=== PATIENT | male | born 1990 | race Caucasian/White ===

== ENCOUNTER 2024-07-14 11:30 | Observation (INO) | payer OTHER, SELFPAY ==
[2024-07-14] VITALS (12 sets, daily range): BP systolic 105–133; BP diastolic 66–81; BMI 23.6; BMI 22.8
--- NOTE | 2024-07-14 09:33 | ED.GENMED ---
History of Present Illness
General
Chief Complaint: Chest Pain
Source: patient
Exam Limitations: none
Time Seen by Provider: 07/14/24 09:19
Nursing documentation reviewed up to this point in time: agreed with
History of Present Illness
History of Present Illness:
Patient without any significant past medical history, presents to ED secondary to 3-day history of persistent chest pain. Chest pain described as pressure, middle of his chest, nonradiating, worse with inspiration, without any alleviating factors.
Denies diaphoresis. Denies vomiting but with nausea sensation. Denies dizziness. Denies leg pain or swelling. Denies back pain. Denies recent travel or surgery. Patient vapes. Denies drinking alcohol. Family history is unknown, as patient
was adopted.
Review of Systems
Review of Systems
Allergies reviewed?: Yes
All Other Systems: ROS reviewed and negative except as documented in HPI and ROS
Constitutional: Reports no symptoms; Denies fever
EENT: Reports no symptoms
Respiratory: Reports cough and trouble breathing
Cardiac: Reports no symptoms
ABD/GI: Reports nausea; Denies vomiting
Musculoskeletal: Reports no symptoms
Skin: Reports no symptoms
Neurological: Reports no symptoms
Phy Exam
Physical Exam
Physical Exam:
Physical Exam
General: mild painful distress, not acutely ill. afebrile
Head: nc/at. eomi
Neck: supple. normal range of motion.
Heart: s1/s2 regular rate and rhythm
Lungs: no acute respiratory distress. clear bilaterally. chest wall nontender to palpation
Abdomen: normal bowel sounds. not tender.
Neuro: alert and oriented x 3. no focal neurological deficits
Skin: no rash
Psychiatric: well kept. interactive and cooperative
Extremities: no edema. no calf tenderness.
Scores
Heart Score for Chest Pain Patients
STEMI patient?: No
History: Slightly or Non-Suspicious
ECG: Normal
Age: </= 45 years
Risk Factors: No Risk Factors
Troponin: </= Normal Limit
Heart Score for Chest Pain Patients: 0
Heart Score Risk: 2.5% MACE over next 6 weeks
Course
Orders/Labs/Results
Orders:
Orders
07/14/24 Breakfast
Regular
At Your Request: Limited, [employer] Required
07/14/24 09:15
EKG [Electrocardiogram (*1)] Urgent
Reason for Study: Chest Pain
EKG- Treatment ONCE
07/14/24 09:22
Electrocardiogram (*1) Urgent
Reason for Study: Chest Pain
Cardiac Monitoring- Treatment ONCE
EKG- Treatment ONCE
IV Insert/Care/Rem.- Treatment PRN
O2 Therapy [RESP] Urgent
Titrate/Wean O2 to maintain O2 sat greater than (%): 90
Special Instructions: Maintain sats >/=90%
Pulse Ox/spot Check [RESP] Urgent
Quantity: 1
Special Instructions: ON ROOM AIR
07/14/24 09:24
Complete Blood Count/With Diff Urgent
Comprehensive Metabolic Panel Urgent
PTT Urgent
Prothrombin Time Urgent
Troponin I Urgent
CR Chest Portable - 1 View Urgent
Comment:
Reason For Exam: cp/sob
Reason Study Needs to be Portable: Patient Unstable
07/14/24 09:36
Colchicine 0.6 mg PO NOW STA
Ketorolac [Toradol] 15 mg IV NOW STA
07/14/24 10:14
Echo 2D MMode Color/Doppler Urgent
Reason for Study: Chest pain, EKG changes
Comment: Likely pericarditis.
07/14/24 10:15
COVID-19 Antigen Urgent
Source: Nasal Swab
07/14/24 11:14
Admit/Transfer Patient As Directed
Co-Sign Provider:
Level of Care: Observation services
Assign to:: Telemetry
Physician / Group: Hospitalist: Parish
Diagnosis: Pericarditis
Reason for Telemetry: Other
Other Reason for Telemetry: Pericarditis
Date to Stop Telemetry: 07/16/24
Time to Stop Telemetry: 11:00
07/14/24 11:15
PRN Pain Medication Management As Directed
May give lesser potent ordered pain med per pt: Yes
preference::
Protocol:: Medication orders for pain may be administered in a
manner that supports deferring to patient preference
when the pt is:
- Requesting an ordered lesser potent pain medication.
Least to most potent pain medications are defined
as: acetaminophen < NSAID < tramadol < opioids
(morphine, oxycodone, hydromorphone).
- Requesting a lesser dose of the same medication IF
ORDERED.
- Requesting a less intrusive route of administration
if both routes are prescribed by the provider (PO <
IV).
07/14/24 11:25
Code Status As Directed
Resuscitation Status: Full Code
Bisacodyl [Dulcolax] 10 mg RECTAL [id number] PRN
Docusate W/Senna [Senokot-S] 1 tablet PO BIDPRN PRN
Polyethylene Glycol Powder [Miralax] 17 grams PO DAILYPRN PRN
07/14/24 11:26
Activity As Directed
Activity Level: As Tolerated
Vital Signs As Directed
Frequency: Per unit guidelines
07/14/24 11:27
CARDIOLOGY CONSULT Routine
Consulting Provider: Ralph Peña
Was physician already notified: Yes
Reason for consult: acute pericarditis
07/14/24 12:24
DX Deep Vein Thrombosis Video Routine
07/14/24 16:00
Indomethacin [Indocin] 25 mg PO TID
07/14/24 18:00
Enoxaparin Sodium [Lovenox] 40 mg SC QPM
07/14/24 20:00
Colchicine 0.6 mg PO BID
07/16/24 11:00
DC Protocol for Telemetry ONCE
Abnormal Lab Results
07/14/24
09:24
WBC 25.4 H 10^3/uL
(4.8-10.8)
RBC 4.38 L 10^6/uL
(4.70-6.10)
Hct 37.6 L %
(39.0-52.0)
Abs Immat Gran (auto) 0.1 H 10^3/uL
(0-0.05)
Absolute Neuts (auto) 22.6 H 10^3/uL
(1.4-6.5)
Absolute Lymphs (auto) 1.1 L 10^3/uL
(1.2-3.4)
Absolute Monos (auto) 1.6 H 10^3/uL
(0.1-0.6)
Neutrophils % 88.7 H %
(42.2-75.2)
Lymphocytes % 4.3 L %
(20.5-51.1)
PT 14.7 H Sec
(11.4-14.6)
Glucose 134 H mg/dl
(70-99)
ALT 61 H U/L
(0-50)
07/14/24 09:24
07/14/24 09:24
Vital Signs
Initial and Last Documented VS:
Initial Vital Signs
Pulse Resp BP Pulse Ox
103 17 133/81 100
07/14/24 09:21 07/14/24 09:21 07/14/24 09:21 07/14/24 09:21
Last Documented Vital Signs
Temp Pulse Resp BP Pulse Ox
99.4 F 100 18 119/66 99
07/14/24 12:32 07/14/24 12:32 07/14/24 12:32 07/14/24 12:32 07/14/24 12:32
MDM/Problems Addressed
MDM/Problems Addressed:
Patient evaluated immediately upon arrival. Initial EKG reveals diffuse ST elevation without any acute reciprocal changes, consistent with likely pericarditis, less likely ACS. Patient also evaluated shortly upon arrival by Dr. Peña,
turkey roll maker, who performed bedside ultrasound, and does not feel that patient's symptoms are consistent with ACS. However, in light of patient's significant symptoms, does recommend treating patient acutely with Toradol and
colchicine, with admission to hospitalist service tonight.
*EKG
Interpreted by ED Provider?: Yes
EKG Intrepretation Date: 07/14/24
Heart Rate: 101
Rate: tachycardiac
Rhythm: sinus
Crescent: normal axis
Ischemia: non-specific ST changes
*Critical Care Note
Total Time (30-74mins, 75-104mins- exclusive of procedures): Not Applicable
ED Attending Note
-
Portions of this chart may have been created with voice recognition software.� Occasional wrong word or��sound alike� substitutions may have occurred due to the inherent limitations of voice recognition software.
Discharge Plan
Departure
Patient Disposition: Admit
Date of Disposition: 07/14/24
Time of Disposition: 10:42
Admit to: Telemetry
Presentation/result/management discussed w/ accepting MD/DO: Hospitalist
Discharge Problem:
Pericarditis
Interventions
Interventions:
*Risk Screen - Suicide Last Done: 07/14/24 15:03
*General Assessment Last Done: 07/14/24 09:31
*Neglect/Abuse Screening Last Done: 07/14/24 09:27
*ED- Fall Risk Assessment Last Done: 07/14/24 09:27
*ED COVID-19 Vaccine History Last Done: 07/14/24 09:30
*Nursing Disposition Last Done: 07/14/24 12:05
ED- Cardiac Assessment Last Done: 07/14/24 09:34
Discharge Date and Time
Discharge Date/Time: 07/14/24 12:05
[2024-07-14 09:39] LABS: Hematocrit 37.6 % (39.0-52.0); Hemoglobin 13.1 g/dL (13.0-18.0); Mean Corp Hgb Conc. 34.8 g/dL (33.0-37.0); Mean Corpuscular Hgb 29.9 pg (27.0-31.0); Mean Corpuscular Volume 85.8 fL (80.0-94.0); Mean Platelet Volume 9.1 fL (7.4-10.4); Platelet Count 316 10^3/uL (130-400); Red Blood Cell Count 4.38 10^6/uL (4.70-6.10); Red Cell Dist. Width 12.5 % (11.5-14.5); White Blood Cell Count 25.4 10^3/uL (4.8-10.8)
[2024-07-14] MEDS: TORADOL 15 MG IV (09:41)
[2024-07-14] MEDS: COLCHICINE 0.6 MG PO ×2 (09:41→21:12)
[2024-07-14 09:43] LABS: APTT 34.2 Sec (23.4-35.0); INR 1.11; PT 14.7 Sec (11.4-14.6)
[2024-07-14 09:45] LABS: ALT (SGPT) 61 U/L (0-50); AST (SGOT) 46 U/L (17-59); Albumin 4.1 g/dl (3.5-5.0); Alkaline Phosphatase 43 U/L (38-126); Blood Urea Nitrogen 12 mg/dl (9-20); Calcium 9.3 mg/dl (8.4-10.2); Carbon Dioxide 23 mmol/L (22-30); Chloride 107 mmol/L (98-107); Estimated Creatinine Clearance 110 ml/min; Glucose 134 mg/dl (70-99); Sodium 140 mmol/L (135-145); Total Protein 7.4 g/dl (6.3-8.2); eGFR > 60.00
[2024-07-14 09:56] LABS: Troponin I 0.019 ng/ml
[2024-07-14 10:40] LABS: COVID-19 Antigen Negative (Negative)
--- NOTE | 2024-07-14 10:54 | CON.CAR ---
Consultation
Consultation Request
Date/Time Consultation Requested: 07/14/2024, 09:23
Date/Time Consultation Performed: 07/14/2024, 09:30
Requesting Provider: Delta Gomez M.D.
Performing Provider: Ralph Peña D.O.
Reason for Consultation: Chest pain, abnormal EKG.
Medical History
-
Chief Complaint: Chest pain.
History of Present Illness:
34 y/o male without significant past medical history presents with chest pain. The pain is severe, pleuritic and worsens with recumbent position. He denies any prior episodes. Pain has been present for the past three days, though accelerated to
the point of seeking medical attention this morning. On further questioning, he admits to self treating a sore throat at home. He has taken OTC cough medicine but is otherwise healthy. He does not take any medications on a regular basis. He did
have a prior episode of hematuria (treated at the [facility]) without obvious source. He reports that physicians at [facility] did not find any abnormalities (perhaps he had a UTI and was treated with ABX?). 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
exposures. In the ER, EKG showed diffuse ST elevations, initially prompting warehouse laborer activation. Bedside echo using the ER US machine (with cardiac probe) revealed normal LV function without wall motion abnormality. senior cytogenetics laboratory director was cancelled for
likely diagnosis of acute pericarditis. He is adopted (ethnically Stateless, no [place] ancestry by report) and is unaware of any biological family history.
Past Medical History
Past Medical History: None
Past Surgical History: None
Social History
Tobacco: Vaping
Alcohol: Occasional
Drug: None
Personal: Single
Living: With Family
Employment: Employed
Family History
Family History: Adopted
Allergies / Home Medications
Allergy/AdvReac Type Severity Reaction Status Date / Time
No Known Allergies Allergy Unverified 07/14/24 09:27
�Medication �Instructions �Recorded �Confirmed �Type
No Meds [No Current Medications] 07/14/24 07/14/24 History
Review of Systems
-
History Source: Patient and Family
Constitutional: Chills
EENT: Tearing and Sore Throat
Respiratory: Cough
Cardiac: Chest Pain and Diaphoresis
Abdomen/GI: No Symptoms
: No Symptoms
Musculoskeletal: No Symptoms
Skin: No Symptoms
Neurological: No Symptoms
Physical Exam
Vital Signs
Pulse Resp BP Pulse Ox
97 11 105/66 98
07/14/24 10:30 07/14/24 10:15 07/14/24 10:30 07/14/24 10:30
Lab Results
07/14/24 09:24
07/14/24 09:24
Troponin I 0.019 ng/ml 07/14/24 09:24
Physical Exam
General: Well Developed, Well Nourished, Pain and Chills
HEENT: Normocephalic, Anicteric and Moist Mucous Membranes
Respiratory: Clear
Cardiac: S1/S2, Regular Rhythm and Rub
Breast: Deferred by me
GI: Soft, Non Tender, Non Distended and Normal Bowel Sounds
Rectal: Deferred by Provider
Musculoskeletal: No Clubbing, No Cyanosis and No Edema
Skin: Warm and Dry
Neuro: AO x 3
Psych: Calm
Impression / Plan
-
Impression/Plan: 34 y/o male with recent URI/sore throat presenting with three days of accelerating, pleuritic chest pain, worsened with recumbent position and diffuse ST elevation on EKG, consistent with pericarditis.
#Pericarditis
-Acute.
-Likley post viral given recent URI/sore throat symptoms. COVID negative.
-No current role for invasive angiography.
-Check formal echocardiogram.
-Check/trend troponin to r/o myocarditis component.
-Start pain relief/anti-inflammatories (indomethacin + colchicine).
#Dispo
-Admit for observation to internal medicine with cardiology consult.
Data Reviewed
-
EKG: Tracing Personally Visualized and interpreted and Report Reviewed by me
Radiology: Image Personally Visualized and interpreted and Report Reviewed by me
Ultrasound: Image Personally Visualized and interpreted
Labs: Labs Reviewed by me, Discussed with Physician, Discussed with Patient and Discussed with Family
[2024-07-14 11:24] LABS: % Basophils 0.3 % (0-2); % Immature Granulocytes 0.5 % (0-0.5); % Lymphocytes 4.3 % (20.5-51.1); % Monocytes 6.2 % (1.7-9.3); % Neutrophils 88.7 % (42.2-75.2); Absolute Basophils 0.1 10^3/uL (0-0.2); Absolute Immature Granulocytes 0.1 10^3/uL (0-0.05); Absolute Lymphocytes 1.1 10^3/uL (1.2-3.4); Absolute Monocytes 1.6 10^3/uL (0.1-0.6); Absolute Neutrophils 22.6 10^3/uL (1.4-6.5); Nucleated Red Blood Cells % 0 % (-)
--- NOTE | 2024-07-14 11:31 | HPS.HSE ---
Family Physician
-
Family Physician: NOT KNOW UNKNOWN - PT DOES
Chief Complaint
-
Chest pain
History of Present Illness
Mr. Cruz is a 34-year-old male with no significant medical history who presented with chest pain. His pain started approximately 3 days ago and has been progressively worsening since that time. Pain is worse with deep inspiration and when
laying supine. He feels relief when sitting upright especially when leaning forward. He had upper respiratory infection with sore throat and headache earlier this week which has since resolved. He does not have any chronic medical conditions and
does not take any medications on a daily basis. He does follow with physicians at the [facility] and recently was evaluated there due to hematuria. Etiology of his hematuria was not clear but he thinks they treated him for urinary tract infection and it
has since resolved. He is adopted and does not know anything about his biological family.
In the ED, he was normotensive and mildly tachycardic. No recorded temperature. Labs were significant for leukocytosis of 25,000. Chemistry was generally unremarkable other than a mildly elevated ALT of 61, troponin was within normal limits x 1.
COVID was negative. Chest x-ray showed no acute abnormalities. EKG showed diffusely abnormal ST segments. Initially Heavy Equipment Rental Associate was activated for STEMI alert which was later aborted once it was determined the EKG was more consistent with acute
pericarditis rather than ACS. Bedside echo showed normal LV function with no regional wall motion abnormalities. Patient was given colchicine and ketorolac and admitted for further evaluation and management of acute pericarditis.
Medical History
Past Medical History
Past Medical History: Reports None
Past Surgical History: Reports None
Social History
Tobacco: Vaping
Alcohol: None
Drug: None
Family History
Family History: Adopted
Allergies / Home Medications
Allergies reflects when Allergies were last updated in [facility].
Home Medications with original date entered in [facility]
Allergy/Medication List:
Allergies
Allergy/AdvReac Type Severity Reaction Status Date / Time
No Known Allergies Allergy Unverified 07/14/24 09:27
Home Medications
No Meds [No Current Medications] 07/14/24
Review of Systems
-
History Source: Patient
A 12 point ROS was completed and negative except as noted: Yes
Cardiac: Reports Chest Pain
Physical Exam
Vital Signs
Vital Signs
Pulse Resp BP Pulse Ox
101 16 114/70 98
07/14/24 11:00 07/14/24 11:09 07/14/24 11:00 07/14/24 11:00
Physical Exam
General: No Apparent Distress
Laboratory Results
-
07/14/24 09:24
07/14/24 09:24
Laboratory Results
PT 14.7 Sec (11.4-14.6) H 07/14/24 09:24
INR 1.11 07/14/24 09:24
APTT 34.2 Sec (23.4-35.0) 07/14/24 09:24
Total Bilirubin 1.0 mg/dl (0.2-1.3) 07/14/24 09:24
AST 46 U/L (17-59) 07/14/24 09:24
ALT 61 U/L (0-50) H 07/14/24 09:24
Alkaline Phosphatase 43 U/L (38-126) 07/14/24 09:24
Troponin I 0.019 ng/ml 07/14/24 09:24
Impression/Plan
-
General: No Apparent Distress, Comfortable and Conversant
HEENT: NormoCephalic, Moist mucous membranes, Atraumatic
Respiratory: Clear and Non Labored Respirations
Cardiac: S1/S2 and Regular Rhythm; tachycardic with heart rate 100
GI: Soft, Non Tender, Non Distended and Normal Bowel Sounds
Musculoskeletal: No Edema, no deformity
Skin: Warm and dry
: NO Henry
Neuro: Awake, Alert, Nonfocal/grossly intact
Psych: Calm and Intact Judgment/Insight
Mr. Cruz is a 34-year-old male with no significant medical history who presented with chest pain. His pain started approximately 3 days ago and has been progressively worsening since that time. Pain is worse with deep inspiration and when
laying supine. He feels relief when sitting upright especially when leaning forward. He had upper respiratory infection with sore throat and headache earlier this week which has since resolved. He does not have any chronic medical conditions and
does not take any medications on a daily basis. He does follow with physicians at the [facility] and was evaluated there approximately 3 months ago due to painful hematuria. Etiology of his hematuria was not clear but he thinks they treated him for
urinary tract infection and it has since resolved. He is adopted and does not know anything about his biological family.
In the ED, he was normotensive and mildly tachycardic. No recorded temperature. Labs were significant for leukocytosis of 25,000. Chemistry was generally unremarkable other than a mildly elevated ALT of 61, troponin was within normal limits x 1.
COVID was negative. Chest x-ray showed no acute abnormalities. EKG showed diffusely abnormal ST segments. Initially Heavy Equipment Rental Associate was activated for STEMI alert which was later aborted once it was determined the EKG was more consistent with acute
pericarditis rather than ACS. Bedside echo showed normal LV function with no regional wall motion abnormalities. Patient was given colchicine and ketorolac and admitted for further evaluation and management of acute pericarditis.
Acute pericarditis:
- Do not feel patient has an acute infection requiring antibiotics despite leukocytosis and tachycardia, presentation more consistent with acute pericarditis
- Cardiology following, trend troponins to monitor for myocarditis
- Formal echocardiogram pending
- Will continue NSAIDs with indomethacin for 1 to 2 weeks, colchicine for 3 months
- Continue telemetry monitoring
- Supportive care
DVT prophylaxis: Lovenox
CODE STATUS: Full code
Total time spent on today's encounter was 55 minutes
--- NOTE | 2024-07-14 13:37 | PTCARENOTE ---
Patient with shivering, vomited x [address] Lugo updated.
[2024-07-14] MEDS: TYLENOL PO (14:35)
[2024-07-14] MEDS: ZOFRAN 4 MG IV (14:39)
[2024-07-14] MEDS: NSS 1000 IV ×2 (14:40→17:08)
[2024-07-14] MEDS: TYLENOL 650 MG PO (15:13)
--- NOTE | 2024-07-14 15:26 | PTCARENOTE ---
Dr. Lugo updated on patient: Patient c/o headache, axillary temp with 2 different thermometers 103 F and 103.5 F. Patient denies current chest pain, but now c/o generalized muscle aches, including b/l knee pain and pain in the groin that
radiates to his heels.
[2024-07-14] MEDS: INDOCIN 25 MG PO ×2 (16:51→21:13)
[2024-07-14] MEDS: VANCOCIN 530 MG IV (16:57)
--- NOTE | 2024-07-14 17:04 | W.PN.UPDATE ---
Update Note
Progress Note Update
Was notified that he was experiencing headaches with a temperature of 103 along with generalized muscle aches and bilateral knee pain that was radiating down to his legs
Evaluated at bedside. States his mom was massaging his quads and his knees and calfs with resolution of discomfort
Chest discomfort still present being that it will improve with colchicine and indomethacin
Will obtain a CK level as I suspect he likely has a myalgia/myositis component
Ordered flu as COVID is negative
At the time of my evaluation he was not in acute distress resting comfortably in bed otherwise. Did feel warm to touch bedside nurse stress brought him a ice pack.
[2024-07-14] MEDS: STERILE WATER FOR INJECTION 10 ML IV (17:10)
[2024-07-14] MEDS: MAXIPIME 1000 MG IV (17:10)
[2024-07-14] MEDS: LOVENOX 40 MG SC (17:13)
--- NOTE | 2024-07-14 18:57 | PHA.VAN.IN ---
Assessment
- Assessment
Renal Function: Unknown baseline
Maximum Temperature: 103.5 - 07/14/24 15:13
Concomitant Antimicrobials: cefepime
AUC Dosing Plan
- Dosing Variables
Dosing Weight (kg): 65
Dosing CrCl (ml/min): 110
Vd coefficient (L/kg): 0.7
- Empiric Dosing
Initial / Loading Dose: 1500 mg - adm 07/14 ~1700
Maintenance Regimen: 750 mg q8h - to start 2200 tonight
Estimated AUC (mcg*h/mL): 541
Estimated Peak (mcg*h/mL): 30.8
Estimated Trough (mcg/ml): 15.8
Estimated Half Life (H): 7.2
- Monitoring
No levels ordered at this time: consider levels after Tuesday brennon dose ( 4th maint)
Pharmacokinetics Vancomycin I
- -
Patient Age: 34
Patient Sex: Male
Vancomycin Day #: 1
Indication: Bacteremia
Requesting Provider: Parish
Height / Weight:
Height 5 ft 7 in
Actual Weight 65.828 kg
- Vital Signs / Lab Results
Temp Pulse Resp BP Pulse Ox
102.9 F H 107 20 118/70 95
07/14/24 15:23 07/14/24 15:23 07/14/24 15:23 07/14/24 15:23 07/14/24 15:23
Lab Results - Hematology
07/14/24
09:24
WBC 25.4 H
Lab Results - Chemistry
07/14/24
09:24
BUN 12
Creatinine 0.9
Estimated Creat Clear 110
Albumin 4.1
Microbiology Results
07/14/24 16:27 Influenza Types A & B (MARY) - Final
Nasal Swab Negative for Influenza A & B, NAAT
Negative results must be combined with clinical observations
and patient history.
Nucleic Acid Amplification test (NAAT)performed on the
[employer] platform.
[2024-07-14 22:13] LABS: Troponin I 0.018 ng/ml
[2024-07-14] MEDS: VANCOCIN 150 IV (22:44)
[2024-07-15] MEDS: STERILE WATER FOR INJECTION 10 ML IV ×3 (00:02→16:26)
[2024-07-15] MEDS: MAXIPIME 1000 MG IV ×3 (00:02→16:26)
[2024-07-15 03:14] VITALS: BP 109/71
[2024-07-15 04:22] LABS: % Basophils 0.3 % (0-2); % Eosinophils 0.4 % (0-6); % Immature Granulocytes 0.4 % (0-0.5); % Lymphocytes 6.6 % (20.5-51.1); % Neutrophils 84.3 % (42.2-75.2); Absolute Basophils 0.1 10^3/uL (0-0.2); Absolute Eosinophils 0.1 10^3/uL (0-0.7); Absolute Immature Granulocytes 0.1 10^3/uL (0-0.05); Absolute Lymphocytes 1.2 10^3/uL (1.2-3.4); Absolute Monocytes 1.4 10^3/uL (0.1-0.6); Absolute Neutrophils 15.3 10^3/uL (1.4-6.5); Hematocrit 33.7 % (39.0-52.0); Hemoglobin 11.7 g/dL (13.0-18.0); Mean Corp Hgb Conc. 34.7 g/dL (33.0-37.0); Mean Corpuscular Hgb 30.3 pg (27.0-31.0); Mean Corpuscular Volume 87.3 fL (80.0-94.0); Mean Platelet Volume 9.3 fL (7.4-10.4); Nucleated Red Blood Cells % 0 % (-); Platelet Count 282 10^3/uL (130-400); Red Blood Cell Count 3.86 10^6/uL (4.70-6.10); Red Cell Dist. Width 12.6 % (11.5-14.5); White Blood Cell Count 18.1 10^3/uL (4.8-10.8)
[2024-07-15 04:44] LABS: ALT (SGPT) 42 U/L (0-50); AST (SGOT) 23 U/L (17-59); Albumin 3.2 g/dl (3.5-5.0); Alkaline Phosphatase 46 U/L (38-126); Blood Urea Nitrogen 10 mg/dl (9-20); Calcium 8.8 mg/dl (8.4-10.2); Carbon Dioxide 26 mmol/L (22-30); Chloride 112 mmol/L (98-107); Creatine Phosphokinase 46 U/L (55-170); Estimated Creatinine Clearance 110 ml/min; Glucose 129 mg/dl (70-99); Potassium 3.9 mmol/L (3.5-5.1); Sodium 143 mmol/L (135-145); Total Bilirubin 0.8 mg/dl (0.2-1.3); Total Protein 6.1 g/dl (6.3-8.2); eGFR > 60.00
[2024-07-15 04:55] LABS: Troponin I 0.028 ng/ml
[2024-07-15] MEDS: VANCOCIN 150 IV (06:02)
[2024-07-15 07:00] VITALS: BP 110/65
[2024-07-15] MEDS: COLCHICINE 0.6 MG PO ×2 (07:44→19:56)
[2024-07-15] MEDS: INDOCIN 25 MG PO ×3 (07:44→21:22)
--- NOTE | 2024-07-15 07:56 | PHA.VAN.FU ---
Vancomycin Assessment / Plan
- Assessment
Renal Function: Stable
WBC's are: Trending Down
In the past 24 hrs, patient has been: Febrile (Tmax = 103.5)
Concomitant Antimicrobials: Cefepime
- Dosing Plan
Continue: Vanc 750mg IV Q8H
- Monitoring Plan
Peak Level: 07/16 at 0100
Trough Level: 07/16 at 0530
- Follow Up
Pharmacy will continue to follow.
Vancomycin Follow UP
- -
Patient Age: 34
Patient Sex: Male
Vancomycin Day #: 2
Indication: Bacteremia
Requesting Provider: Parish
Height / Weight:
Height 5 ft 7 in
Actual Weight 65.828 kg
- Vital Signs / Lab Results
Temp Pulse Resp BP Pulse Ox
98.1 F 79 20 110/65 99
07/15/24 07:00 07/15/24 07:00 07/15/24 07:00 07/15/24 07:00 07/15/24 07:00
Lab Results - Hematology
07/14/24 07/15/24
09 04:11
WBC 25.4 H 18.1 H
Lab Results - Chemistry
07/14/24 07/15/24
09: 04:11
BUN 12 10
Creatinine 0.9 0.9
Estimated Creat Clear 110 110
Albumin 4.1 3.2 L
Microbiology Results
07/14/24 16:27 Influenza Types A & B (MARY) - Final
Nasal Swab Negative for Influenza A & B, NAAT
Negative results must be combined with clinical observations
and patient history.
Nucleic Acid Amplification test (NAAT)performed on the
[employer] platform.
--- NOTE | 2024-07-15 10:12 | W.PN.CD ---
Today's Communication / Plan
-
pericarditis improving
still some mild resisul discomfort
Toelrating meds
Continue indomethicin and colchicine
add PPI while on NSAID
evaluationof fever and decisions regarding abx per hospitalist
.
Impression / Plan
-
Impression/Plan: 34 y/o male with recent URI/sore throat presenting with three days of accelerating, pleuritic chest pain, worsened with recumbent position and diffuse ST elevation on EKG, consistent with pericarditis.
#Pericarditis
-Acute.
-Likley post viral given recent URI/sore throat symptoms. COVID negative.
-Chest pain has imprved. Still some residual chest discomfort with deep breath and with laying falt. No rub
- echo 07/14/24 - normal LVF and no effusion
-Continue(indomethacin + colchicine).
- would add Prilosec while on NSAID
.
#fever
- temp 103 - 07/14/24
- possible viral illness
- CXR without infiltrate
- on abx - directed by primary team
Physical Exam
Vital Signs/Labs
Vital Signs
Temp Pulse Resp BP Pulse Ox
98.1 F 79 20 110/65 99
07/15/24 07:00 07/15/24 07:00 07/15/24 07:00 07/15/24 07:00 07/15/24 07:00
07/14/24 07/15/24 07/16/24
06:59 06:59 06:59
Actual Weight 65.828 kg
07/15/24 04:11
07/15/24 04:11
PT 14.7 Sec (11.4-14.6) H 07/14/24 09:24
INR 1.11 07/14/24 09:24
APTT 34.2 Sec (23.4-35.0) 07/14/24 09:24
LAB Results
07/14/24 07/14/24 07/14/24
09:24 15:56 21:42
Troponin I 0.019 Cancelled 0.018
07/15/24 07/15/24 07/15/24
00:00 04:11 06:00
Troponin I Cancelled 0.028 D Cancelled
Physical Exam
Constitutional: No acute distress
Cardiovascular: Rhythm & rate is regular, Pedal edema is absent, Systolic murmur absent, Rub absent and Other
Respiratory: Respiratory effort normal
GI: Soft
Neuro/Psych: Alert and Oriented
Data Reviewed
-
Date of Service: July 15, 2024
Medical Decision Making: Reviewed Test Results
X-Ray/CT/US/MRI/NUC/PET: Report Reviewed by me
Medical Tests (PFT, Pathology etc): Report Reviewed by me
Labs: Labs Reviewed by me
[2024-07-15 11:00] VITALS: BP 116/69
--- NOTE | 2024-07-15 11:57 | W.PN.HOSP.TC ---
Today's Communication/Plan
-
Assessment / Plan
Assessment / Plan
General: No Apparent Distress, Comfortable and Conversant
HEENT: NormoCephalic, Moist mucous membranes, Atraumatic
Respiratory: Clear and Non Labored Respirations
Cardiac: S1/S2 and Regular Rhythm; heart rate 80
GI: Soft, Non Tender, Non Distended and Normal Bowel Sounds
Musculoskeletal: No Edema, no deformity
Skin: Warm and dry
: NO Henry
Neuro: Awake, Alert, Nonfocal/grossly intact
Psych: Calm and Intact Judgment/Insight
Mr. Cruz is a 34-year-old male with no significant medical history who presented with chest pain. His pain started approximately 3 days ago and has been progressively worsening since that time. Pain is worse with deep inspiration and when
laying supine. He feels relief when sitting upright especially when leaning forward. He had upper respiratory infection with sore throat and headache earlier this week which has since resolved. He does not have any chronic medical conditions and
does not take any medications on a daily basis. He does follow with physicians at the OR and was evaluated there approximately 3 months ago due to painful hematuria. Etiology of his hematuria was not clear but he thinks they treated him for
urinary tract infection and it has since resolved. He is adopted and does not know anything about his biological family.
In the ED, he was normotensive and mildly tachycardic. No recorded temperature. Labs were significant for leukocytosis of 25,000. Chemistry was generally unremarkable other than a mildly elevated ALT of 61, troponin was within normal limits x 1.
COVID was negative. Chest x-ray showed no acute abnormalities. EKG showed diffusely abnormal ST segments. Initially [employer] was activated for STEMI alert which was later aborted once it was determined the EKG was more consistent with acute
pericarditis rather than ACS. Bedside echo showed normal LV function with no regional wall motion abnormalities. Patient was given colchicine and ketorolac and admitted for further evaluation and management of acute pericarditis.
Acute pericarditis:
- Developed fever yesterday afternoon with temperature of 103.5 �F, cultures obtained and he was started on broad-spectrum antibiotics at that point, afebrile since, influenza and COVID-negative
- Troponins within normal limits x 3
- Echocardiogram shows normal systolic function, no valve abnormalities, no pericardial effusion
- Will continue NSAIDs with indomethacin for 1 to 2 weeks, colchicine for 3 months
- PPI while on NSAIDs
- Appreciate cardiology guidance
- Continue telemetry monitoring
- Supportive care
- Anticipate de-escalating and potentially even discontinuing antibiotics in the next 24 hours of he remains afebrile and cultures remain sterile
- Likely discharge home tomorrow 07/16
DVT prophylaxis: Lovenox
CODE STATUS: Full code
Total time spent on today's encounter was 45 minutes
Anticipated Discharge: 24 - 48 hours
Subjective/Interval History
-
Date of Service: July 15, 2024
Patient was seen and examined at bedside this morning. He became febrile yesterday afternoon but is much more comfortable this morning. Currently on broad-spectrum antibiotics however can likely de-escalate in the next 24 hours if remains
afebrile. Chest discomfort also significantly improved.
Objective Data
-
Labs:
Laboratory Results
07/15/24
04:11
WBC 18.1 H
Hgb 11.7 L
Hct 33.7 L
Plt Count 282
Sodium 143
Potassium 3.9
Chloride 112 H
Carbon Dioxide 26
BUN 10
Creatinine 0.9
Glucose 129 H
Calcium 8.8
Total Bilirubin 0.8
AST 23
ALT 42
Alkaline Phosphatase 46
Vital Signs:
Vital Signs
Temp Pulse Resp BP Pulse Ox
97.7 F 83 16 116/69 99
07/15/24 11:00 07/15/24 11:00 07/15/24 11:00 07/15/24 11:00 07/15/24 11:00
I&O
07/14/24 07/15/24 07/16/24
06:59 06:59 06:59
Intake Total 2069
Balance 2069
Review of Systems
-
History Source: Patient
All other systems: Reviewed and negative
Cardiac: Reports Chest Pain (Mild chest discomfort)
Physical Exam
-
General: No Apparent Distress
[2024-07-15] MEDS: PROTONIX IV 40 MG IV (12:30)
[2024-07-15] MEDS: NSS (PRESERVATIVE FREE) 10 ML IV (12:30)
[2024-07-15] MEDS: VANCOCIN IV (14:10)
[2024-07-15 15:00] VITALS: BP 122/69
--- NOTE | 2024-07-15 16:19 | CM ---
manager behavior reviewed patient's chart and met with patient and mother at bedside and explained OBS stable, patient did not sign OBS letter. Patient lives with parents is independent with adl's and ambulation, no dme, home when astable, no needs.
PCP: Deborah Bonner
Pharmacy: [facility] in [place].
Plan; Home when stable.
[2024-07-15] MEDS: LOVENOX 40 MG SC (17:15)
[2024-07-15 19:15] VITALS: BP 108/70
[2024-07-15 22:56] VITALS: BP 118/69
[2024-07-16] MEDS: MAXIPIME 1000 MG IV ×2 (00:01→09:24)
[2024-07-16] MEDS: STERILE WATER FOR INJECTION 10 ML IV ×2 (00:01→09:23)
[2024-07-16 02:51] VITALS: BP 110/64
[2024-07-16 07:48] VITALS: BP 118/70
[2024-07-16 08:03] LABS: % Basophils 0.3 % (0-2); % Eosinophils 2.8 % (0-6); % Immature Granulocytes 0.7 % (0-0.5); % Lymphocytes 16.3 % (20.5-51.1); % Monocytes 7.4 % (1.7-9.3); % Neutrophils 72.5 % (42.2-75.2); Absolute Eosinophils 0.2 10^3/uL (0-0.7); Absolute Immature Granulocytes 0.1 10^3/uL (0-0.05); Absolute Lymphocytes 1.1 10^3/uL (1.2-3.4); Absolute Monocytes 0.5 10^3/uL (0.1-0.6); Absolute Neutrophils 4.9 10^3/uL (1.4-6.5); Hematocrit 36.6 % (39.0-52.0); Hemoglobin 12.5 g/dL (13.0-18.0); Mean Corp Hgb Conc. 34.2 g/dL (33.0-37.0); Mean Corpuscular Hgb 29.9 pg (27.0-31.0); Mean Corpuscular Volume 87.6 fL (80.0-94.0); Mean Platelet Volume 9.5 fL (7.4-10.4); Nucleated Red Blood Cells % 0 % (-); Platelet Count 355 10^3/uL (130-400); Red Blood Cell Count 4.18 10^6/uL (4.70-6.10); Red Cell Dist. Width 12.7 % (11.5-14.5); White Blood Cell Count 6.7 10^3/uL (4.8-10.8)
--- NOTE | 2024-07-16 08:19 | W.PN.CD ---
Today's Communication / Plan
-
- Discharged home on indomethacin 25 mg 3 times daily for 2 week then 25 mg twice a day for 1 week then 25 mg once a day for 1 weeks
- Continue colchicine 0.6 mg twice a day for 2 weeks, then 0.3 mg twice a day for 2 more weeks. If patient develops diarrhea. The dose can be reduced to 0.3 mg twice a day at that time.
- Protonix 40 mg once a day for 4 weeks while on indomethacin.
- Stable for discharge from cardiac standpoint.
Impression / Plan
-
Impression/Plan: 34 y/o male with recent URI/sore throat presenting with three days of accelerating, pleuritic chest pain, worsened with recumbent position and diffuse ST elevation on EKG, consistent with pericarditis.
#Pericarditis
-Acute.
-Likely post viral given recent URI/sore throat symptoms. COVID negative.
-Chest pain has improved. Still some residual chest discomfort with deep breath and with laying falt. No rub
- echo 07/14/24 - normal LVEF and no effusion
-Continue(indomethacin + colchicine).
- Prilosec while on NSAID
.
#fever
- temp 103 - 07/14/24 -afebrile since
- possible viral illness
- CXR without infiltrate
- on abx - directed by primary team
Physical Exam
Vital Signs/Labs
Vital Signs
Temp Pulse Resp BP Pulse Ox
98.4 F 70 18 118/70 100
07/16/24 07:48 07/16/24 07:48 07/16/24 07:48 07/16/24 07:48 07/16/24 07:48
07/15/24 07/16/24 07/17/24
06:59 06:59 06:59
Actual Weight 65.828 kg
07/16/24 06:54
07/15/24 04:11
PT 14.7 Sec (11.4-14.6) H 07/14/24 09:24
INR 1.11 07/14/24 09:24
APTT 34.2 Sec (23.4-35.0) 07/14/24 09:24
LAB Results
07/14/24 07/14/24 07/14/24
09:24 15:56 21:42
Troponin I 0.019 Cancelled 0.018
07/15/24 07/15/24 07/15/24
00:00 04:11 06:00
Troponin I Cancelled 0.028 D Cancelled
Physical Exam
Constitutional: No acute distress and Comfortable
EENT: Anicteric and Moist mucous membranes
Cardiovascular: Rhythm & rate is regular, Pedal edema is absent and JVD pressure is normal
Respiratory: Respiratory effort normal, Lungs clear to auscul. and Wheeze Absent
GI: Soft, Non tender and Normal bowel sounds
Neuro/Psych: Alert, Oriented and AO x 3
Other: Skin
Data Reviewed
-
Date of Service: July 16, 2024
Medical Decision Making: Reviewed Test Results, Test Interpretation and Review of Case with other Provider
EKG: Tracing Personally Visualized and interpreted
Echo: Report Reviewed by me
X-Ray/CT/US/MRI/NUC/PET: Image Personally Visualized and interpreted
Medical Tests (PFT, Pathology etc): Discussed with Patient
Labs: Labs Reviewed by me
Old Records: Reviewed
[2024-07-16] MEDS: PROTONIX 40 MG PO (09:24)
[2024-07-16] MEDS: COLCHICINE 0.6 MG PO (09:24)
[2024-07-16] MEDS: INDOCIN 25 MG PO (09:24)
[2024-07-16 10:15] LABS: Troponin I < 0.012 ng/ml
[2024-07-16 11:24] VITALS: BP 119/68
--- NOTE | 2024-07-16 11:30 | W.PN.HOSP.TC ---
Today's Communication/Plan
-
-Indomethacin 25 mg TID x 2 week -> 25 mg BID x 1 week -> 25 mg QD x 1 week
-Colchicine 0.6 mg BID x 2 week -> 0.3 mg BID x 2 week
-Protonix 40 mg QD x 40 week
Assessment / Plan
Assessment / Plan
#Acute pericarditis
-Likely viral etiology; no signs of Lyme exposure or perimyocarditis with negative troponin
-ECG presented with diffuse ST elevation in [place] depression, positional chest pain
-Echocardiogram was unremarkable, normal systolic function and valves, no effusion
-Was started on indomethacin and colchicine here for planned 4-week course
-As of morning 07/16 patient asymptomatic, feeling well; no events on telemetry
-Indomethacin 25 mg TID x 2 week -> 25 mg BID x 1 week -> 25 mg QD x 1 week
-Colchicine 0.6 mg BID x 2 week -> 0.3 mg BID x 2 week
-Protonix 40 mg QD x 40 week
#Fever
-Suspected this is viral etiology, associated with pericarditis as above
-Did have a stretch of fevers here with temperature recorded near 103 �F
-Was started on antibiotics here, other infectious workup negative
-Will discontinue antibiotics, encourage close follow-up with PCP
#Anxiety/depression
-Continue sertraline
Diet: Regular
DVT prophylaxis: Lovenox
CODE STATUS: Full code
Anticipated Discharge: Today
Subjective/Interval History
-
Date of Service: July 16, 2024
Seen and examined at bedside. No acute events reported overnight. AFVSS this morning
No events on telemetry. Patient states his symptoms have resolved
Feels well and would like to go home
Objective Data
-
Labs:
Laboratory Results
07/16/24
06:54
WBC 6.7
Hgb 12.5 L
Hct 36.6 L
Plt Count 355 D
Vital Signs:
Vital Signs
Temp Pulse Resp BP Pulse Ox
98.7 F 79 18 119/68 98
07/16/24 11:24 07/16/24 11:24 07/16/24 11:24 07/16/24 11:24 07/16/24 11:24
I&O
07/15/24 07/16/24 07/17/24
06:59 06:59 06:59
Intake Total 2069
Balance 2069
Review of Systems
-
History Source: Patient
All other systems: Reviewed and negative
Physical Exam
-
General: Well Developed, Well Nourished, No Apparent Distress and Comfortable
HEENT: Normocephalic, Atraumatic, Moist Mucous Membranes and Anicteric
Respiratory: Clear to Auscultation and Non Labored Respirations
Cardiac: Regular Rhythm and S1/S2; Negative Murmur, Rub or Tachycardic
GI: Soft, Nontender, Nondistended and Normal Bowel Sounds
Musculoskeletal: No Clubbing, No Cyanosis and No Edema
Skin: Warm, Dry and Normal Turgor; Negative Rash
Neuro: AO x 3; Negative Tremors
Psych: Calm
Data Reviewed
-
Labs: Labs Reviewed by me and Discussed with Patient
--- NOTE | 2024-07-16 11:56 | CM ---
Home today no needs.
Plan; Home no needs.
--- NOTE | 2024-07-16 16:52 | W.DCSUMMARY ---
Discharge Summary
Discharge Data
Date of Admission: 07/14/24
Date of Discharge: 07/16/24
Total time spent discharging patient (in min): 31
-
Pending Results: No
Hospital Course
Discharging Physician :�Ralph Blackwell DO
Disposition :���� Home
Principal Discharge diagnosis :�
Acute pericarditis
Atypical chest pain
Chronic Discharge diagnosis :�
Anxiety/Depression
Medical marijuana use
Hospital Course :�
34-year-old male that presented to the hospital with chest pain and fevers. Chest pain determined to be positional with improved discomfort when seated relative to supine or leaning forward. Initial ECG with diffuse, nonterritorial ST elevation
with signs of [place] depression consistent with pericarditis. Troponin was negative x 3. Patient was started on anti-inflammatory regimen with indomethacin 25 mg tapered and colchicine 0.6 mg taper. Chest pain improved with anti-inflammatory regimen.
Echocardiogram was performed that did not show any abnormal findings. When clinically improved he was determined stable for discharge and outpatient follow-up with his PCP. At time of discharge was recommended to continue the below medication
regimen:
Indomethacin 25 mg 3 times daily for 2 weeks -> 25 mg twice daily for 1 week -> 25 mg daily for 1 week
Colchicine 0.6 mg twice daily for 2 weeks -> 0.3 mg twice daily for 2 weeks
Pantoprazole 40 mg daily for 4 weeks while on above anti-inflammatory agents/NSAIDs
Consultants :
Cardiology: Ralph Peña DO
Important imaging findings :�
TTE (07/10/2024)
Normal left ventricular size, wall thickness and systolic function.
LV ejection fraction is 55-60%.
No significant valve abnormalities
No pericardial effusion
No prior study for comparison
Procedure findings :� N/A
Follow-up :
Follow-up with PCP (referral provided) within 1 to 2 weeks of discharge from hospital
Discharge Plan
-
Patient Disposition: Home (Routine Discharge)
Discharge Diagnosis/Procedures: Acute pericarditis
Condition: Good
Diet: No restrictions
Activity: As tolerated
Driving Restrictions: As prior to admission
Bathing Restrictions: None
Blood Work: None
Others Tests: None
Activity Restrictions/Additional Instructions:
Follow-up with family doctor within 1 to 2 weeks of discharge from the hospital. Referral provided for you below.
If you develop recurrence/persistence of high fevers (>100.4 �F) then you should contact your family doctor.
Instructions: Pericarditis in adults
Referrals:
Deepak Molina MD [Active] - in one to two weeks
UNKNOWN - PT DOES,NOT KNOW [Family Provider] -
Additional Discharge Medication Instructions: Indomethacin: 25 mg THREE times daily for 2 weeks, then 25 mg TWICE daily for 1 week, then 25 mg ONCE daily for 1 week
Colchicine: 0.6 mg TWICE daily for 2 weeks, then 0.3 mg TWICE daily for 2 weeks
Pantoprazole: 40 mg daily while on indomethacin and colchicine
Prescriptions:
New
indomethacin 25 mg Capsule
25 mg PO .see instructions Qty: 70 0RF
Rx Instructions:
25 TID x 2week -> 25 BID x 1week -> 25 QD x 1week
colchicine 0.6 mg Tablet
0.3 mg PO .see instruction Qty: 50 0RF
Rx Instructions:
0.6 mg BID x 2 week -> 0.3 mg BID x 2 week
pantoprazole 40 mg Tablet,Delayed Release (Dr/Ec)
40 mg PO DAILY 30 Days Qty: 30 0RF
Continued
Marijuana inhaler
See Rx Instructions .ROUTE .COMPLEX
Rx Instructions:
3-4x/day recreational -obtains from dispensary (previously possessed [place] card)
Discontinued
sertraline 50 mg Tablet
50 mg PO DAILY
Patient Comments:
patient stopped taking about 1 month prior
Discharge Orders:
Discharge Patient (As Directed); Ordered 07/16/24
Ordered By: Ralph Blackwell
Discharge Date and Time
Discharge Date/Time: 07/16/24 13:40
Print Language: TURKMEN
== END 2024-07-16 13:40 | disposition home or self-care (01) ==
LOC: 4 WEST ACU 11:30
PROVIDERS: Hospitalist; Internal Medicine Cardiovascular Disease; ADMITTING PHYSICIAN Internal Medicine; ATTENDING PHYSICIAN Internal Medicine; CONSULT PHYSICIAN Internal Medicine Cardiovascular Disease; EMERGENCY PHYSICIAN Emergency Medicine
DX: I30.9 Acute pericarditis, unspecified (principal); Z11.52 Encounter for screening for COVID-19; F17.290 Nicotine dependence, other tobacco product, uncomplicated; R50.9 Fever, unspecified; F41.9 Anxiety disorder, unspecified; F32.A Depression, unspecified; Z79.899 Other long term (current) drug therapy
CPT/HCPCS: 71045; 80053; 82550; 84484; 85025; 85610; 85730; 87040; 87070; 87502; 87811; 93005; 93306; 94760; 96374; 99285; G0378